=== PATIENT | female | born 1990 | race Caucasian/White ===

== ENCOUNTER 2024-07-20 12:38 | Outpatient (CLI) | payer BC | END 2024-07-20 12:39 | disposition home or self-care (01) | LOC: CSHDTY/OP 12:38 | PROVIDERS: ATTEND Nurse Practitioner Family | DX: E66.01 Morbid (severe) obesity due to excess calories (principal) | CPT/HCPCS: 97802 ==

== ENCOUNTER 2024-08-25 12:43 | Outpatient (CLI) | payer BC | END 2024-08-25 12:44 | disposition home or self-care (01) | LOC: CSHDTY/OP 12:43 | PROVIDERS: ATTEND Nurse Practitioner Family | DX: E66.01 Morbid (severe) obesity due to excess calories (principal) | CPT/HCPCS: 97802 ==